=== PATIENT | female | born 1960 | race Caucasian/White ===

== ENCOUNTER 2024-11-24 13:17 | Emergency (ER) | payer OTHER ==
[2024-11-24] MEDS ORDERED: HYDRALAZINE HCL 20 MG/ML VIAL ONE (13:38)
[2024-11-24 13:58] LABS: Absolute Lymphocytes (CBC) 1.4 K/uL (0.7-4.9); Hematocrit 40.7 % (36.0-45.0); Hemoglobin 13.7 g/dL (12.0-15.0); MCH 30.1 pg (27.0-35.0); MCHC 33.6 g/dL (32.0-36.0); MCV 89.6 fL (80-100); MPV 10.0 fL (7.6-11.3); Nucleated RBC Absolute Count 0.0 (0-0); Nucleated Red Blood Cells % 0.0 % (0-0); RBC Red Blood Cell Count 4.54 M/uL (3.86-4.86); White Blood Count 7.20 thou/uL (4.3-10.9)
[2024-11-24 14:24] LABS: ALT/SGPT 60.0 U/L (13-56); AST/SGOT 39.0 U/L (15-37); Albumin 3.7 g/dL (3.4-5.0); Albumin/Globulin Ratio 1.0 (1.1-1.8); Alkaline Phosphatase 91.0 U/L (45-117); Anion Gap 8.6 mEq/L (5.0-15.0); BUN Blood Urea Nitrogen 11.0 mg/dL (7-18); Bilirubin Indirect, Calculated 0.4 mg/dL (0.2-0.8); Globulin 3.8 g/dL (2.3-3.5); Glucose Level 138.0 mg/dL (74-106); Magnesium 2.0 mg/dL (1.6-2.4); Potassium 3.6 mEq/L (3.5-5.1); Troponin High Sensitivity 5.8 pg/mL (<58.9)
[2024-11-24 14:40] LABS: PT Prothrombin Time 12.3 SECONDS (10-13.0); Protime INR 1.09
[2024-11-24 14:41] LABS: D-Dimer 2.03 FEUug/mL (0-0.500)
--- NOTE | 2024-11-24 15:42 | EDPHYS ---
Physician Documentation [facility] Name: Nell Mijares Age: 64 yrs Sex: Female : 1960 Arrival Date: 11/24/2024 Time: 13:17 Bed 16 Private MD: ED Physician Carlos Christy HPI: 11/24 13:29 This 64 yrs old Female presents to ER via Ambulatory with complaints of High Blood sb4 Pressure. 13:29 Patient states she had a laparoscopic cholecystectomy 3 days ago. States that her blood sb4 pressure was high while she was hospitalized and they were giving her medications for it while she was there, but did not give her any medication upon discharge. Has never been diagnosed formally with hypertension. States that her blood pressure was high today and she was also having pain so she took 3 Advil which improved her pain but her blood pressure remained elevated. She additionally was noticing some flushing in her face and had a headache so she came to the ED for further eval. Denies any chest pain, shortness of breath, dizziness. Historical: - Allergies: 13:25 No Known Allergies; hb - PMHx: 13:25 None; hb - PSHx: 13:25 Cholecystectomy; hb - Immunization history:: Adult Immunizations up to date. - Infectious Disease History:: Denies. - Social history:: Smoking status: Patient denies any tobacco usage or history of. ROS: 13:29 Constitutional: Negative for fever, chills, and weight loss, sb4 13:29 Neuro: Positive for headache, 13:29 All other systems are negative, Exam: 13:29 Head/Face: Normocephalic, atraumatic. Eyes: Extra-ocular motions intact. Periorbital sb4 areas with no swelling, redness, or edema. ENT: Mucous membranes moist. Cardiovascular: Regular rate and rhythm with a normal S1 and S2. Respiratory: No increased work of breathing, no retractions or nasal flaring. 13:29 Constitutional: The patient appears in no acute distress, alert, awake, 13:29 Abdomen/GI: Inspection: scar(s), are noted in the right lower quadrant and left lower quadrant, Laparoscopic cholecystectomy scars with Dermabond in place, mild ecchymosis surrounding the umbilical incision, no dehiscence or erythema, 13:29 Skin: Appearance: flushing, noted on the face, that are mild, Vital Signs: 13:24 BP 202 / 135; Pulse 96; Resp 18; Temp 97.7; Pulse Ox 99% on R/A; hb 13:42 BP 184 / 97; Pulse 90; Resp 17; Pulse Ox 100% on R/A; ar8 14:00 BP 166 / 98; Pulse 81; Resp 15; Pulse Ox 100% on R/A; ar8 15:00 BP 155 / 98; Pulse 81; Resp 18 S; Pulse Ox 100% ; ar8 16:02 BP 132 / 89; Pulse 83; Resp 19; Pulse Ox 99% on R/A; Pain 0/10; ar8 16:02 Pain Scale: Adult ar8 MDM: 13:23 Medical Screening Exam initiated sb4 13:31 Differential diagnosis: hypertensive crisis, Malignant HTN. sb4 15:19 Data interpreted: laboratory monitor: rate is 81 beats/min, rhythm is normal sinus rhythm, sb4 Interpretation: normal rate, normal rhythm. Data reviewed: vital signs, nurses notes, lab test result(s), EKG, radiologic studies, plain films, and as a result, I will discharge patient. Consideration of Admission/Observation Escalation of care including admission/observation considered. Independent interpretation of the following test(s) in the Emergency Department X-Ray: My interpretation is My interpretation of the chest x-ray images is no cardiomegaly or lobar consolidation. Counseling: I had a detailed discussion with the patient and/or guardian regarding the historical points, exam findings, and any diagnostic results supporting the discharge/admit diagnosis, the presence of at least one elevated blood pressure reading (>120/80) during this emergency department visit, lab results, radiology results, the need for outpatient follow up, for definitive care, a customer service security officer, to return to the emergency department if symptoms worsen or persist or if there are any questions or concerns that arise at home. 15:26 ED course: Elevation in D-dimer is likely secondary to postsurgical state, had sb4 cholecystectomy 3 days ago. I have a very low suspicion for PE -no tachycardia, hypoxia, tachypnea, chest pain, shortness of breath. 11/24 13:27 Order name: Basic Metabolic Panel sb4 11/24 13:27 Order name: CBC with Diff; Complete Time: 14:00 4 11/24 13:27 Order name: D-Dimer; Complete Time: 14:44 sb4 11/24 13:27 Order name: LFT's sb4 11/24 13:27 Order name: Magnesium sb4 11/24 13:27 Order name: NT PRO-BNP sb4 11/24 13:27 Order name: PT-INR; Complete Time: 14:44 sb4 11/24 13:27 Order name: Troponin HS sb4 11/24 13:27 Order name: XRAY Chest (1 view); Complete Time: 15:43 sb4 11/24 13:27 Order name: EKG; Complete Time: 13:28 sb4 11/24 13:27 Order name: Cardiac monitoring; Complete Time: 13:39 sb4 11/24 13:27 Order name: EKG - Nurse/Tech; Complete Time: 13:39 sb4 11/24 13:27 Order name: IV Saline Lock; Complete Time: 13:39 sb4 11/24 13:27 Order name: Labs collected and sent; Complete Time: 13:39 sb4 11/24 13:27 Order name: O2 Per Protocol; Complete Time: 13:39 sb4 11/24 13:27 Order name: O2 Sat Monitoring; Complete Time: 13:39 sb4 11/24 14:08 Order name: Labs - recollect needed: recollect blue top; Complete Time: 14:23 bd EC:17 Rate is 82 beats/min. Rhythm is regular, Normal Sinus Rhythm. AK interval is normal at sb4 176 msec. QRS interval is normal at 88 msec. QT interval is normal at 374 msec. No Q waves. T waves are Normal. No ST changes noted. Clinical impression: No evidence of ischemia. Interpreted by me. Reviewed by me. Administered Medications: 13:43 Not Given (Physician Discretion): hydralazine5 mg IVP once bp 13:43 Drug: cloNIDine PO 0.1 mg PO once Route: PO; bp 16:00 Follow up: Response: No adverse reaction; Blood pressure is lowered ar8 Disposition: 16:18 I was immediately available on-site in the Emergency Department for consultation in the ms3 care of the patient. Disposition Summary: 11/24/24 15:41 Discharge Ordered Notes: Location: Home sb4 Problem: new sb4 Symptoms: have improved sb4 Condition: Stable sb4 Diagnosis - Elevated blood-pressure reading, without diagnosis of hypertension sb4 Followup: sb4 - With: Radha High DO - When: As needed - Reason: Recheck today's complaints, Re-evaluation by your physician Discharge Instructions: - Discharge Summary Sheet sb4 - Hypertension, Adult, [id number] sb4 - How to Take Your Blood Pressure, [id number] sb4 - Form - Blood Pressure Record Sheet sb4 Forms: - Patient Portal Instructions sb4 - Leadership Thank You Letter sb4 Prescriptions: - Lisinopril 10 mg Oral Tablet - take 1 tablet ORAL route once daily; 20 tablet; Refills: 0, Product Selection sb4 Permitted Signatures: Dispatcher [employer] EDMS Bella Sahni Heather, RN RN Marco A Abdi RN RN bp Carlos Christy DO DO ms3 Shameka Washington, PAMahnaz PAMahnaz sb4 Chapin Abel RN ar8
--- NOTE | 2024-11-24 15:42 | ER ---
Nurse's Notes [facility] Name: Nell Mijares Age: 64 yrs Sex: Female : 1960 Arrival Date: 11/24/2024 Time: 13:17 Bed 16 Private MD: Diagnosis: Elevated blood-pressure reading, without diagnosis of hypertension Presentation: 11/24 13:24 Chief complaint: HIGH HOME BP 150S/100S AT HOME TODAY, C/O HEADACHE AND NOT FEELING hb WELL. PT IS 3 DAYS S/P CHOLECYSTECTOMY. Coronavirus screen: At this time, the client does not indicate any symptoms associated with coronavirus-19. Ebola Screen: No symptoms or risks identified at this time. Initial Sepsis Screen: Does the patient meet any 2 criteria? No. Patient's initial sepsis screen is negative. Does the patient have a suspected source of infection? No. Patient's initial sepsis screen is negative. Risk Assessment: Do you want to hurt yourself or someone else? Patient reports no desire to harm self or others. Onset of symptoms was November 24, 2024. 13:24 Method Of Arrival: Ambulatory hb 13:24 Acuity: ROSEANNA 2 hb Triage Assessment: 15:00 Pain: Denies pain. ar8 Historical: - Allergies: 13:25 No Known Allergies; hb - PMHx: 13:25 None; hb - PSHx: 13:25 Cholecystectomy; hb - Immunization history:: Adult Immunizations up to date. - Infectious Disease History:: Denies. - Social history:: Smoking status: Patient denies any tobacco usage or history of. Screenin:42 [facility] ED Fall Risk Assessment (Adult) History of falling in the last 3 months, ar8 including since admission No falls in past 3 months (0 pts) Confusion or Disorientation No (0 pts) Intoxicated or Sedated No (0 pts) Impaired Gait No (0 pts) Mobility Assist Device Used No (0 pt) Altered Elimination No (0 pt) Score/Fall Risk Level 0 - 2 = Low Risk. [facility] ED Fall Risk Assessment (Adult) Score/Fall Risk Level 0 - 2 = Low Risk Oriented to surroundings, Maintained a safe environment. Abuse screen: Denies threats or abuse. Nutritional screening: No deficits noted. Tuberculosis screening: No symptoms or risk factors identified. Assessment: 13:42 General: Appears in no apparent distress. Behavior is calm, cooperative, appropriate ar8 for age. Neuro: No deficits noted. Level of Consciousness is awake, alert, obeys commands, Oriented to person, place, time, situation. Cardiovascular: No deficits noted. Respiratory: No deficits noted. Airway is patent Respiratory effort is even, unlabored, Respiratory pattern is regular, symmetrical. 13:45 Reassessment: Patient and/or family updated on plan of care and expected duration. Pain ll1 level reassessed. Vital Signs: 13:24 BP 202 / 135; Pulse 96; Resp 18; Temp 97.7; Pulse Ox 99% on R/A; hb 13:42 BP 184 / 97; Pulse 90; Resp 17; Pulse Ox 100% on R/A; ar8 14:00 BP 166 / 98; Pulse 81; Resp 15; Pulse Ox 100% on R/A; ar8 15:00 BP 155 / 98; Pulse 81; Resp 18 S; Pulse Ox 100% ; ar8 16:02 BP 132 / 89; Pulse 83; Resp 19; Pulse Ox 99% on R/A; Pain 0/10; ar8 16:02 Pain Scale: Adult ar8 ED Course: 13:20 Patient arrived in ED. al6 13:22 Shameka Washington PA-C is PHCP. sb4 13:22 Carlos Christy DO is Attending Physician. sb4 13:25 Triage completed. hb 13:26 Arm band placed on. hb 13:29 Chapin Abel, RN is Primary Nurse. ar8 13:39 EKG done, by central sterile technician. reviewed by Shameka Washington PA-C. ts3 13:40 No provider procedures requiring assistance completed. Inserted saline lock: 22 gauge ar8 in right antecubital area, using aseptic technique. Blood collected. Flushed with 10 mL NS. 13:42 Bed in low position. Call light in reach. Side rails up X 1. Provided Education on: ar8 plan of care. Client placed on continuous cardiac and pulse oximetry monitoring. NIBP monitoring applied. 14:23 Lab(s) recollected, by cath lab technologist, sent to lab. ts3 14:44 XRAY Chest (1 view) In Process Unspecified. EDMS 15:41 Radha High DO is Referral Physician. sb4 16:08 IV discontinued, intact, bleeding controlled, No redness/swelling at site. Pressure ar8 dressing applied. Administered Medications: 13:43 Not Given (Physician Discretion): hydralazine5 mg IVP once bp 13:43 Drug: cloNIDine PO 0.1 mg PO once Route: PO; bp 16:00 Follow up: Response: No adverse reaction; Blood pressure is lowered ar8 Medication: 13:42 VIS not applicable for this client. ar8 Outcome: 15:41 Discharge ordered by . sb4 16:08 Discharged to home ambulatory, ar8 16:08 Condition: stable 16:08 Discharge instructions given to patient, Instructed on discharge instructions, follow up and referral plans. medication usage, Demonstrated understanding of instructions, follow-up care, medications, 16:09 Patient left the ED. ar8 Signatures: Dispatcher [employer] EDJoan Call, RN RN Marco A Abdi RN RN Melisa Granda RN RN ll1 Shameka Washington, PA-C PA-C sb4 Nicky Knight Taisha 3 Chapin Abel RN RN ar8
--- NOTE | 2024-11-24 15:43 | RAD REPORT ---
EXAMINATION: ONE VIEW CHEST XR CLINICAL INDICATION: Female, 64 years old.,CHEST PAIN TECHNIQUE: Frontal chest projection is submitted. Examination is limited by patient positioning and t echnique. COMPARISON: 08/14/2011 FINDINGS: The lungs are grossly clear although suboptimal inspiratory effort somewhat limits evaluation. No pn eumothorax or sizable effusion. The heart is normal in size. Mediastinal contours are unremarkable. IMPRESSION: No acute intrathoracic abnormalities.
[2024-11-24 18:15] LABS: NT PRO-BNP 525.0 pg/mL (<125)
[2024-11-24 20:19] VITALS: TEMP 97.7
[2024-11-24 20:26] VITALS: BP 132/89; O2SAT 99
== END 2024-11-24 16:09 | disposition home or self-care (01) ==
LOC: ER 13:17
DX: R03.0 Elevated blood-pressure reading, without diagnosis of hypertension (principal); Z90.49 Acquired absence of other specified parts of digestive tract
CPT/HCPCS: 36415; 71045; 80048; 80076; 83735; 83880; 84484; 85025; 85379; 85610; 93005; J0360